=== PATIENT | male | born 1980 | race Two or more races ===

== ENCOUNTER 2022-02-27 18:00 | Emergency (ER) | payer BC, OTHER ==
[~2022-02-27] VITALS: Ht 167.6 cm; Wt 95.0 kg
[2022-02-27] MEDS ORDERED: ACETAMINOPHEN 500 MG TAB PO ONE (20:45)
[2022-02-27] MEDS ORDERED: traMADol HCL 50 MG TAB PO ONE (22:15)
[2022-02-27] MEDS ORDERED: IBUP800T27 PO (22:16)
[2022-02-27 22:40] VITALS: BP 139/82
== END 2022-02-27 22:50 | disposition home or self-care (01) ==
LOC: ER 18:05
DX: S22.42XA Multiple fractures of ribs, left side, initial encounter for closed fracture (principal); V86.55XA Driver of 3- or 4- wheeled all-terrain vehicle (ATV) injured in nontraffic accident, initial encounter; Y93.89 Activity, other specified; Y92.89 Other specified places as the place of occurrence of the external cause; Y99.8 Other external cause status
CPT/HCPCS: 70450; 71250; 72125; 74176